=== PATIENT | male | born 1970 | race Caucasian/White ===

== ENCOUNTER 2024-06-30 02:07 | Emergency (ER) | payer BC, OTHER ==
[~2024-06-30] VITALS: Ht 185.4 cm; Wt 108.9 kg
[2024-06-30 02:30] VITALS: BP_SYST 160; PULSE 88; RESP 20; TEMP 98.4; O2SAT 97
[2024-06-30] MEDS ORDERED: cefTRIAXone 1 GM VIAL ONE (05:19)
[2024-06-30] MEDS ORDERED: CIPR500T5 PO (05:45)
[2024-06-30] MEDS ORDERED: NAPR-690 PO (05:45)
[2024-06-30] MEDS: cefTRIAXone 1 GM in LIDOCAINE 1%, 20 ML MDV 2.1 ML IM ONE (05:52)
[2024-06-30 05:55] VITALS: BP_SYST 160; PULSE 88; RESP 20; TEMP 98.4; O2SAT 97
== END 2024-06-30 05:53 | disposition home or self-care (01) ==
LOC: SED 02:07
DX: N45.1 Epididymitis (principal); R03.0 Elevated blood-pressure reading, without diagnosis of hypertension; Z88.5 Allergy status to narcotic agent; Z88.6 Allergy status to analgesic agent; Z79.899 Other long term (current) drug therapy; Z79.2 Long term (current) use of antibiotics
CPT/HCPCS: 76870; 99284; J0696